=== PATIENT | male | born 1990 | race Caucasian/White ===

== ENCOUNTER 2017-07-26 06:31 | Inpatient (IN) ==
[2017-07-26] MEDS ORDERED: ONDANSETRON 4 MG/2 ML VIAL IV STA (07:20)
[2017-07-26] MEDS ORDERED: LOPERAMIDE 2 MG CAPSULE PO STA (07:20)
[2017-07-26] MEDS ORDERED: SODIUM CHLORIDE 0.9% 1,000 ML IV STA ×2 (07:20→09:46)
--- NOTE | 2017-07-26 07:32 | Emergency Department Note ---
Yayo Garcia Manpreet, am scribing for, and in the presence of, Juanjose Richards MD 07: 23. Susie Garcia James D, MD, personally performed the services described in this documentation, ascribed by Cliff Zee in my presence, and it is both accurate and complete 731 . Arrival - Arrival Chief Complaint: Nausea/Vomiting/Diarrhea Stated Complaint: vomitting/diarrhea/chest pressure/body ache ED Nursing Triage Note: AMB TO ER WITH C/O BODY ACHES, VOMITTING, AND DIARRHEA FOR THE PAST 3 DAYS. HAS HAD CHILLS AND FEELING WEAK. HAS BEEN WEAK AND TIRED FOR THE PAST 3 DAYS. ALSO COMPLAING OF A HEADACHE. LIPS ARE DRY AND CHAPPED. Mode of Arrival: Ambulatory Limitations: No Limitations Source: Patient - History of Present Illness HPI Narrative: Pt is a 26 y/o male, with PMHx of chronic leukemia, who presents to the ED with CC of Abd pain, SOB, FERNANDES, body aches, and V/D for the past 3 days. Pt states he has also been having chills and feeling weak for the past 3 days. Pt states he has had at least 15 BM's in one day but states he has only been urinating twice a day. Pt denies any hematemesis, blood in stool or dysuria. Pt was dx'ed with leukemia in 2010 and takes a Sprycell 100 mg qd. Pt's oncologist is Dr. Horan. No other pains/complaints reported to the ED. Onset (ago): day(s) Consistency: constant Severity: moderate Severity scale (1-10): 2 Allergies/Adverse Reactions: Allergies Allergy/AdvReac Type Severity Reaction Status Date / Time No Known Allergies Allergy Unverified 07/26/17 06:55 Home Medications: Home Medications Medication Instructions Recorded Confirmed Type Dasatinib [Sprycel] 100 mg PO DAILY 07/26/17 07/26/17 History Ibuprofen/Famotidine [Duexis 1 each PO TID 07/26/17 07/26/17 History 800-26.6 mg Tablet] Review of System - Review of System 12 point system: reviewed and no additional remarkable complaints except as stated - Review of System Constitutional: Present: chills, weakness. Absent: diaphoresis, fever Respiratory: Present: respiratory distress. Absent: cough, wheezing Cardiovascular: Absent: chest pain Gastrointestinal: Present: abdominal pain, nausea, vomiting, diarrhea. Absent: hematemesis, hematochezia Genitourinary male: Absent: dysuria Musculoskeletal: Absent: back pain Neurological: Present: headache. Absent: weakness, numbness, paresthesias Medical,Surgical,& Family Hx - Medical History Musculoskeletal: History of: Herniated Disk Hematology: History of: Hematologic Cancer (CHRONIC LEUKEMIA) - Social History Smoking Status: Never smoker Frequency of Alcohol Use: None Type of Drug Use: None Exam Vital Signs: Vital Signs Temperature 99.5 F 07/26/17 06:47 Pulse Rate 80 07/26/17 10:00 Respiratory Rate 17 07/26/17 10:00 Blood Pressure 126/78 07/26/17 10:00 O2 Sat by Pulse Oximetry 100 07/26/17 10:00 GENERAL: This is a well-nourished well-developed white male in no apparent distress. VITAL SIGNS: Reviewed HEENT: Head is atraumatic and normocephalic. Pupils are equal round react to light. Extraocular movements are intact. Oropharynx is benign with slightly dry mucous membranes. NECK: Neck is soft and supple without tenderness. There are no masses. There is no lymphadenopathy. LUNGS: Lungs are clear to auscultation. Chest rises symmetrically. There is no chest wall tenderness. CV: Heart is regular rate and rhythm without murmurs rubs or gallops. ABDOMEN: Abdomen is soft, nontender to palpation. There are no abdominal abnormal masses palpated. There is no organomegaly. Bowel sounds are present and active. SKIN: Skin is warm and dry. No rash. EXTREMITIES: Patient has full range of motion without tenderness. There is no pedal edema. NEUROLOGIC: Awake alert and oriented 4. Cranial nerves II through XII are intact. Motor is 5 over 5 in all extremities bilaterally. Course - Consultations Consultation #1: Discussed with Dr. Saldivar. Patient will be admitted to the oncology service. Time: 12:21 Results - Labs CBC & BMP: 07/26/17 07:17 07/26/17 07:17 Lab Results: I have reviewed the patients labs Labs: Microbiology 07/26/17 10:03 Stool Clostridium difficile Toxin Assay - Final Negative for CDiff A &/or B Ag 07/26/17 10:03 Stool - Final Few WBCs seen - EKG EKG results: interpreted by ERMD - Diagnostic Findings Procedure: Abdominal x-ray: image reviewed by me (Nonspecific gas pattern, no free air, gas in the rectum.), Chest x-ray: image reviewed by me (No infiltrates , no pleural effusions.) Disposition Clinical Impression: CML (chronic myelocytic leukemia), Diarrhea, Nausea and vomiting, Dehydration Case discussed with: patient Disposition: Still a Patient Condition: Stable Time of Disposition: 12:20
--- NOTE | 2017-07-26 07:49 | XRay Report ---
XR chest 1V Indication: Fever, leukemia Comparison: 04 November 2012 Findings: The heart and mediastinum are normal in size and configuration. The pulmonary vascularity is normal in caliber. No lung infiltrates, effusions, pneumothorax or other abnormality is demonstrated. Impression: Normal chest x-ray PROCEDURE INTERPRETED AT [facility] DEPARTMENT OF RADIOLOGY Final Report Signed by: Dr. Jakob Martinez
--- NOTE | 2017-07-26 07:49 | XRay Report ---
XR abdomen 2V Indication: Diarrhea, leukemia Comparison: None available Findings: No free fluid or free air seen. The bowel gas pattern appears within normal limits. No abnormal calcifications are present. No other abnormality is identified. Impression: No evidence of abnormality demonstrated PROCEDURE INTERPRETED AT [facility] DEPARTMENT OF RADIOLOGY Final Report Signed by: Dr. Jakob Martinez
[2017-07-26 07:59] LABS: Eosinophils % 0.3 % (0.00-10.9); Hematocrit 42.3 VOL% (42.0-52.0); Immature Granulocytes % 0.3 %; Immature Granulocytes Absolute 0.01 #; Lymphocytes # 0.6 10*3/uL (1.4-4.0); Lymphocytes % 18.7 % (21.2-54.2); Mean Corpuscular HGB Conc 37.4 GM/DL (32-36); Mean Corpuscular Hemoglobin 32 PG (27-34); Mean Platelet Volume 11.5 FL (9.6-12.0); Monocytes # 0.4 10*3/uL (0.11-0.8); Monocytes % 14.1 % (1.7-12.7); Neutrophils % 66.6 % (38.7-73.9); Platelet Count 125 T/CUMM (130-400); Red Blood Count 4.92 MC/CUMM (3.8-5.5); Red Cell Distribution Width 12.7 % (9.3-17.3); White Blood Count 3.1 T/CUMM (4-12)
[2017-07-26 08:00] LABS: Hemoglobin 15.8 GM/DL (14.0-18.0)
[2017-07-26 08:04] LABS: Albumin 4.3 G/DL (3.4-5.0); Bilirubin,Total 3.7 MG/DL (0.2-1.0); Calcium 8.9 MG/DL (8.5-10.1); Osmolality,Calculated 274.8 MOS/KG (273-304); Total Protein 7.1 G/DL (6.4-8.3)
[2017-07-26] MEDS ORDERED: ONDANSETRON 4 MG/2 ML VIAL ONE ×2 (08:27→12:19)
[2017-07-26] MEDS ORDERED: LOPERAMIDE 2 MG CAPSULE ONE (10:00)
[2017-07-26 12:20] LABS: Apearance,Urine CLEAR (Clear); Bilirubin,Urine Negative (Negative); Blood, Urine Negative (Negative); Glucose,Urine (UA) Negative (Negative); Ketones,Urine 20 mg/dL (Negative); Mucus,Urine Occasional /LPF (Occasional); Nitrite,Urine Negative (Negative); Protein,Urine Negative; Urine Color Yellow (Yellow); Urine Specific Gravity 1.009 (1.001-1.035); Urine Urobilinogen < 2.0 EU/DL (0.2-1.0); WBC,Urine 1 /HPF (0-6)
[2017-07-26 12:34] LABS: Barbiturates Screen,Urine Negative (Negative); Benzodiazepines Screen,Urine Negative (Negative); Cannabinoid Screen,Urine Positive (Negative); Opiate Screen,Urine Negative (Negative); Phencyclidine Screen,Urine Negative (Negative)
[2017-07-26] MEDS ORDERED: LOPERAMIDE 2 MG CAPSULE PO PRN ×2 (14:23)
[2017-07-26] MEDS ORDERED: chlorproMAZINE INJ 50 MG in SODIUM CHLORIDE 0.9% 100 ML IV PRN (14:23)
[2017-07-26] MEDS ORDERED: MAGNESIUM HYDROXIDE SUSP 30 ML UDCUP PO PRN (14:23)
[2017-07-26] MEDS ORDERED: guaiFENesin 200 MG/10 ML UDCUP PO PRN (14:23)
[2017-07-26] MEDS ORDERED: chlorproMAZINE INJ 25 MG in SODIUM CHLORIDE 0.9% 100 ML IV PRN (14:23)
[2017-07-26] MEDS ORDERED: ALPRAZolam 0.25 MG TABLET PO PRN (14:23)
[2017-07-26] MEDS ORDERED: TEMAZEPAM 7.5 MG CAPSULE PO PRN (14:23)
[2017-07-26] MEDS ORDERED: ALUMINUM/MAGNES/SIMETH MAX STR 30 ML UDCUP PO PRN (14:23)
[2017-07-26] MEDS ORDERED: ACETAMINOPHEN 325 MG TABLET PO PRN (14:23)
[2017-07-26] MEDS ORDERED: diphenhydrAMINE CAP 25 MG CAPSULE PO PRN (14:23)
[2017-07-26] MEDS ORDERED: MYLANTA/LIDO VISC 2:1 300 ML BOTTLE SWISH/SPIT PRN (14:23)
[2017-07-26] MEDS ORDERED: BENZTROPINE 2 MG/2 ML AMP IV PRN (14:23)
[2017-07-26] MEDS ORDERED: traMADol 50 MG TABLET PO PRN (14:23)
[2017-07-26] MEDS ORDERED: PROMETHAZINE INJ 25 MG in SODIUM CHLORIDE 0.9% 50 ML IV PRN (14:23)
[2017-07-26] MEDS ORDERED: chlorproMAZINE 25 MG TABLET PO PRN (14:23)
[2017-07-26] MEDS ORDERED: ONDANSETRON 4 MG/2 ML VIAL IV PRN (14:23)
[2017-07-26] MEDS ORDERED: LACTULOSE 20 GM/30 ML UDCUP PO PRN (14:23)
[2017-07-26] MEDS ORDERED: MYLANTA/LIDO VISC 2:1 300 ML BOTTLE SWISH/SWAL PRN (14:23)
[2017-07-26] MEDS: SODIUM CHLORIDE 0.9% 1,000 ML IV SCH (17:54)
[2017-07-26] MEDS: CIPROFLOXACIN 500 MG TABLET PO SCH ×2 (17:55→21:00)
[2017-07-26] MEDS ORDERED: CIPROFLOXACIN 500 MG TABLET PO SCH (21:00)
[2017-07-27] MEDS: SODIUM CHLORIDE 0.9% 1,000 ML IV SCH ×2 (01:56→07:35)
[2017-07-27 06:28] LABS: Basophils % 0.4 % (0.0-0.8); Eosinophils # 0.1 10*3/uL (0.0-0.87); Eosinophils % 2.5 % (0.00-10.9); Hematocrit 35.2 VOL% (42.0-52.0); Hemoglobin 12.5 GM/DL (14.0-18.0); Immature Granulocytes % 0.4 %; Immature Granulocytes Absolute 0.01 #; Lymphocytes # 0.9 10*3/uL (1.4-4.0); Lymphocytes % 37.1 % (21.2-54.2); Mean Corpuscular HGB Conc 35.5 GM/DL (32-36); Mean Corpuscular Hemoglobin 32 PG (27-34); Mean Corpuscular Volume 88.7 FL (87-102); Mean Platelet Volume 11.5 FL (9.6-12.0); Monocytes # 0.4 10*3/uL (0.11-0.8); Neutrophils % 43.6 % (38.7-73.9); Red Blood Count 3.97 MC/CUMM (3.8-5.5); Red Cell Distribution Width 12.7 % (9.3-17.3); White Blood Count 2.4 T/CUMM (4-12)
[2017-07-27 06:32] LABS: Platelet Count 88 T/CUMM (130-400)
[2017-07-27 06:56] LABS: Calcium 8.5 MG/DL (8.5-10.1); Osmolality,Calculated 279.3 MOS/KG (273-304)
[2017-07-27 08:34] LABS: Band Neutrophils 3 % (0-10); Eosinophils 1 % (0-10); Hypochromasia 1+; Lymphocytes 14 % (20-55); Platelet Estimate Decreased; Segmented Neutrophils 72 % (50-85); Total Cells Counted 100
[2017-07-27] MEDS: CIPROFLOXACIN 500 MG TABLET PO SCH ×2 (08:44→20:47)
--- NOTE | 2017-07-27 10:02 | Oncology History&Physical ---
Assessment and Plan - Time spent with patient Time spent with patient: Greater than 30 minutes (1) CML (chronic myelocytic leukemia) Status: Acute Current Visit: Yes (2) Dehydration Status: Acute Current Visit: Yes (3) Diarrhea Status: Acute Assessment and plan: I will place him on twice daily Lomotil. I will adjust his IV fluids. I will go ahead and start him on IV Flagyl and continue with p.o. Cipro. Hopefully his diarrhea will resolve in the next day or 2. We are holding Sprycel for now. I will keep a close watch on a CBC. Current Visit: Yes (4) Nausea and vomiting Status: Acute Current Visit: Yes History of Present Illness History of present illness: Mr. Rodríguez is a 26 year old male with a history of CML that has been on Sprycel now for [address] Han. He presented to the ER yesterday with a 3 day complaint of severe diarrhea and occasional nausea with vomiting. He denies any fever or chills at home but did have 2 episodes of fever here in the hospital. He was admitted for further observation and treatment. His C. difficile toxin was negative. There were white blood cells seen in his stool. He has been off his Sprycel now for 4 days. His CBC shows a mildly suppressed white blood cell count and platelet count. He denies any blood in the stool. He has already had 5 episodes of diarrhea this morning. Home Medications Medication Instructions Recorded Confirmed Type Dasatinib [Sprycel] 100 mg PO DAILY 07/26/17 07/26/17 History Ibuprofen/Famotidine [Duexis 1 each PO TID 07/26/17 07/26/17 History 800-26.6 mg Tablet] Allergies Allergy/AdvReac Type Severity Reaction Status Date / Time No Known Allergies Allergy Unverified 07/26/17 06:55 Medical,Surgical,& Family Hx - Medical History Musculoskeletal: History of: Herniated Disk Hematology: History of: Hematologic Cancer (CHRONIC LEUKEMIA) - Social History Smoking Status: Never smoker Frequency of Alcohol Use: None Type of Drug Use: None 12 point system: reviewed and no additional remarkable complaints except as stated - Constitutional Constitutional: Present: fatigue - Cardiovascular Cardiovascular ROS IM: Absent: chest pain, edema - Respiratory Respiratory: Absent: cough - Gastrointestinal Gastrointestinal: Present: cramping, loose stools, nausea, vomiting. Absent: abdominal pain, hematemesis, jaundice Exam - Constitutional Vitals: Period Temp Pulse Resp BP Sys/Lee Pulse Ox Last 24 Hr 96.4 F-100.4 F 53-80 16-20 101-155/46-81 93-100 General appearance: normal weight, no acute distress - Head Head Exam: Present: normocephalic, atraumatic - Eye Eye Exam: Present: EOMI Pupils: Present: PERRL - ENT ENT exam: Present: normal exam, normal oropharynx - Neck Neck exam: Absent: lymphadenopathy, thyromegaly - Respiratory Respiratory exam: Present: CTAB. Absent: wheezes - Cardiovascular Cardiovascular exam: Present: RRR. Absent: JVD, systolic murmur - GI/Abdominal GI/Abdominal exam: Present: soft. Absent: ascites, distended, firm, mass - Neurological Exam Neurological exam: Present: alert, oriented X3 - Psychiatric Psychiatric exam: Present: normal affect, normal mood - Skin Skin exam: Present: warm, dry Results - Labs CBC & BMP: 07/27/17 04:51 07/27/17 04:51 Lab Results: I have reviewed the past 24 hour labs
[2017-07-27] MEDS: metroNIDAZOLE INJ 500 MG in PREMIX 1 EACH IV SCH ×2 (11:05→18:03)
[2017-07-27] MEDS: DEXT 5% NACL 0.45% KCL 20 MEQ 20 MEQ/1,000 ML BAG IV SCH (11:05)
[2017-07-27] MEDS: DIPHENOXYLATE/ATROPINE 2.5-0.025 MG TABLET PO SCH ×2 (11:05→20:48)
[2017-07-28] MEDS: metroNIDAZOLE INJ 500 MG in PREMIX 1 EACH IV SCH (02:25)
[2017-07-28] MEDS: DEXT 5% NACL 0.45% KCL 20 MEQ 20 MEQ/1,000 ML BAG IV SCH (02:26)
[2017-07-28 05:41] LABS: Basophils % 0.3 % (0.0-0.8); Eosinophils % 1.2 % (0.00-10.9); Hemoglobin 13.1 GM/DL (14.0-18.0); Immature Granulocytes % 0.6 %; Immature Granulocytes Absolute 0.02 #; Lymphocytes # 1.9 10*3/uL (1.4-4.0); Lymphocytes % 58.5 % (21.2-54.2); Mean Corpuscular HGB Conc 35.4 GM/DL (32-36); Mean Corpuscular Hemoglobin 31 PG (27-34); Mean Corpuscular Volume 87.7 FL (87-102); Mean Platelet Volume 11.7 FL (9.6-12.0); Monocytes # 0.3 10*3/uL (0.11-0.8); Monocytes % 9.8 % (1.7-12.7); Neutrophils % 29.6 % (38.7-73.9); Platelet Count 77 T/CUMM (130-400); Red Blood Count 4.22 MC/CUMM (3.8-5.5); Red Cell Distribution Width 12.9 % (9.3-17.3); White Blood Count 3.3 T/CUMM (4-12)
[2017-07-28 06:18] LABS: Albumin 3.5 G/DL (3.4-5.0); Bilirubin,Total 1.6 MG/DL (0.2-1.0); Calcium 8.8 MG/DL (8.5-10.1); Magnesium 2.3 MG/DL (1.8-2.4); Osmolality,Calculated 279.3 MOS/KG (273-304); Potassium 4.4 MMOL/L (3.5-5.1); Total Protein 5.9 G/DL (6.4-8.3)
[2017-07-28 07:35] LABS: Atypical Lymphocytes Moderate; Eosinophils 1 % (0-10); Hypochromasia 1+; Lymphocytes 55 % (20-55); Microcytosis 1+; Platelet Estimate Decreased; Segmented Neutrophils 34 % (50-85); Total Cells Counted 100
--- NOTE | 2017-07-28 08:30 | Discharge Summary ---
Hospital Course - Hospital Course Hospital Course: Mr. Rodríguez feels much better today. His diarrhea significantly improved. He did have 3 bowel movements since lunch yesterday but both of these are more formed. I started him on Flagyl yesterday. He is also taken Lomotil 2 doses. He request to go home today and continue his therapy at home. I am fine with this since his diarrhea has significantly improved. He still remains mildly thrombocytopenic so I would like him to have labs rechecked this week with Dr. Han. He states he was supposed to have this done last week anyway so he will call and get it rechecked in the next day or 2. He will resume his Sprycel tonight. I will give him 3 more days of Flagyl and provide him with Lomotil to be taken as needed. His follow-up should remain as is with Dr. Han for his next office visit. Diagnosis - Discharge Diagnosis (1) CML (chronic myelocytic leukemia) Status: Acute (2) Dehydration Status: Acute (3) Diarrhea Status: Acute (4) Nausea and vomiting Status: Acute Discharge Plan - Discharge Data Disposition: Disch To Home/Self Care Condition at Discharge: Stable Discharge Diet: advance to your usual diet Activity: resume usual activities as tolerated Hygiene: no restrictions Weight Bearing at Discharge: full weight bearing Driving: no restrictions - Discharge Medications New Diphenoxylate/Atrop 2.5-0.025 [Lomotil Tab] 1 tablet PO Q6H PRN #15 tablet PRN Reason: Diarrhea metroNIDAZOLE TAB [Flagyl Cap/Tab] 500 mg PO BID #6 tablet Continue Ibuprofen/Famotidine [Duexis 800-26.6 mg Tablet] 1 each PO TID Dasatinib [Sprycel] 100 mg PO DAILY - Follow Up or Referral - Forms/Instructions Exam - Constitutional Vitals: Period Temp Pulse Resp BP Sys/Lee Pulse Ox Last 24 Hr 97.4 F-99.6 F 58-110 18-20 110-155/55-82 96-99 Discharge Results Procedures and tests throughout hospitalization: Pending Orders 07/26/17 07:53 Blood Culture Stat 07/26/17 10:03 Stool Culture Stat 07/26/17 11:38 Urine Culture Stat Labs on day of discharge: Labs from last 24 hours 07/28/17 07/28/17 07/28/17 04:23 04:23 04:23 WBC 3.3 L D RBC 4.22 Hgb 13.1 L Hct 37.0 L MCV 87.7 MCH 31 MCHC 35.4 RDW 12.9 Plt Count 77 L MPV 11.7 Neut % (Auto) 29.6 L Lymph % (Auto) 58.5 H [place] % (Auto) 9.8 Eos % (Auto) 1.2 Baso % (Auto) 0.3 Neut # (Auto) 1.0 L Lymph # (Auto) 1.9 [place] # (Auto) 0.3 Eos # (Auto) 0.0 Baso # (Auto) 0.0 Total Counted 100 Immature Gran % 0.6 Nucleated RBC % 0.0 Immature Gran # 0.02 Segmented Neutrophils 34 L Band Neutrophils Lymphocytes 55 Monocytes 10 Eosinophils 1 Nucleated RBCs # 0.00 Atypical Lymphocytes Moderate Platelet Estimate Decreased Immature Plt Fraction 0.0 Hypochromasia 1+ Microcytosis 1+ Morphology Comment Fibrinogen 241 Sodium 141 Potassium 4.4 Chloride 106 Carbon Dioxide 32 Anion Gap 7.4 BUN 10 Creatinine 1.20 GFR Calculation 97 BUN/Creatinine Ratio 8.00 Glucose 97 Calculated Osmolality 279.3 Calcium 8.8 Magnesium 2.3 Total Bilirubin 1.60 H AST 11 ALT 14 L Alkaline Phosphatase 34 L Total Protein 5.9 L Albumin 3.5 Globulin 2.4 Albumin/Globulin Ratio 1.4 07/27/17 04:51 WBC RBC Hgb Hct MCV MCH MCHC RDW Plt Count MPV Neut % (Auto) Lymph % (Auto) [place] % (Auto) Eos % (Auto) Baso % (Auto) Neut # (Auto) Lymph # (Auto) [place] # (Auto) Eos # (Auto) Baso # (Auto) Total Counted 100 Immature Gran % Nucleated RBC % Immature Gran # Segmented Neutrophils 72 Band Neutrophils 3 Lymphocytes 14 L Monocytes 10 Eosinophils 1 Nucleated RBCs # Atypical Lymphocytes Platelet Estimate Decreased Immature Plt Fraction Hypochromasia 1+ Microcytosis Morphology Comment Fibrinogen Sodium Potassium Chloride Carbon Dioxide Anion Gap BUN Creatinine GFR Calculation BUN/Creatinine Ratio Glucose Calculated Osmolality Calcium Magnesium Total Bilirubin AST ALT Alkaline Phosphatase Total Protein Albumin Globulin Albumin/Globulin Ratio Preliminary micro results at discharge 07/26/17 11:38 Urine Culture - Preliminary Urine,Voided No Growth at 24 hours. 07/26/17 10:03 Stool Culture - Preliminary Stool No enteric pathogens at 24 hrs 07/26/17 07:53 Blood Culture - Preliminary Blood No growth at 1 day 07/26/17 07:53 Blood Culture - Preliminary Blood No growth at 1 day DS: Provider Date of admission: 07/26/17 12:21 Primary care physician: . Namita PCP Attending physician on admission: Mikey Campoverde MD Discharging clinician: Mikey Campoverde MD
[2017-07-28 11:33] VITALS: BP 123/55
== END 2017-07-28 09:20 | disposition home or self-care (01) | DRG 641 ==
LOC: N.ED 06:31 → N.EDINP 12:21 → N.4E 12:36
PROVIDERS: ADMIT Specialist; ATTEND Specialist

== ENCOUNTER 2021-03-09 14:25 | Inpatient (IN) ==
[2021-03-09] MEDS ORDERED: VANCOMYCIN INJ 1,500 MG in SODIUM CHLORIDE 0.9% 250 ML IV STA (15:17)
[2021-03-09 16:17] LABS: Basophils % 0.1 % (0.0-0.8); Hematocrit 37.8 VOL% (42.0-52.0); Hemoglobin 12.4 GM/DL (14.0-18.0); Immature Granulocytes % 0.4 %; Immature Granulocytes Absolute 0.04 #; Lymphocytes # 1.5 10*3/uL (1.4-4.0); Mean Corpuscular HGB Conc 32.8 GM/DL (32-36); Mean Corpuscular Volume 87.9 FL (87-102); Mean Platelet Volume 9.8 FL (9.6-12.0); Monocytes % 4.8 % (1.7-12.7); Neutrophils % 80.7 % (38.7-73.9); Platelet Count 274 T/CUMM (130-400); Red Cell Distribution Width 13.1 % (9.3-17.3); White Blood Count 10.6 T/CUMM (4-12)
[2021-03-09] MEDS ORDERED: VANCOMYCIN INJ 1,500 MG in SODIUM CHLORIDE 0.9% 500 ML IV STA (16:35)
[2021-03-09 16:43] LABS: Calcium 9.1 MG/DL (8.5-10.1); Potassium 4.2 MMOL/L (3.5-5.1)
[2021-03-09] MEDS ORDERED: ONDANSETRON 4 MG/2 ML VIAL IV PRN (17:27)
[2021-03-09] MEDS ORDERED: GLUCAGON 1 MG VIAL IM PRN (17:27)
[2021-03-09] MEDS ORDERED: DEXTROSE 50% 25 GM/50 ML VIAL IV PRN (17:27)
[2021-03-09] MEDS: MIRTAZAPINE 15 MG TABLET PO SCH (21:44)
[2021-03-09] MEDS: PIPERACILLIN/TAZOBACTAM 3,375 MG in SODIUM CHLORIDE 0.9% 100 ML IV SCH (21:44)
[2021-03-09] MEDS: GABAPENTIN 300 MG CAPSULE PO SCH (21:44)
[2021-03-09 21:47] LABS: Barbiturates Screen,Urine Negative (Negative); Benzodiazepines Screen,Urine Positive (Negative); Cannabinoid Screen,Urine Positive (Negative); Opiate Screen,Urine Negative (Negative); Phencyclidine Screen,Urine Negative (Negative)
[2021-03-09] MEDS: ACETAMINOPHEN 325 MG TABLET PO PRN (22:54)
[2021-03-10] MEDS: VANCOMYCIN INJ 1,500 MG in SODIUM CHLORIDE 0.9% 500 ML IV SCH ×2 (04:05→20:47)
[2021-03-10 05:40] LABS: Basophils % 0.2 % (0.0-0.8); Eosinophils # 0.1 10*3/uL (0.0-0.87); Eosinophils % 1.1 % (0.00-10.9); Hematocrit 35.1 VOL% (42.0-52.0); Hemoglobin 11.2 GM/DL (14.0-18.0); Immature Granulocytes % 0.5 %; Immature Granulocytes Absolute 0.03 #; Lymphocytes # 1.8 10*3/uL (1.4-4.0); Lymphocytes % 27.2 % (21.2-54.2); Mean Corpuscular HGB Conc 31.9 GM/DL (32-36); Mean Corpuscular Volume 90.2 FL (87-102); Mean Platelet Volume 10.2 FL (9.6-12.0); Monocytes % 7.3 % (1.7-12.7); Neutrophils % 63.7 % (38.7-73.9); Platelet Count 249 T/CUMM (130-400); Red Blood Count 3.89 MC/CUMM (3.8-5.5); Red Cell Distribution Width 13.2 % (9.3-17.3); White Blood Count 6.5 T/CUMM (4-12)
[2021-03-10 05:54] LABS: Calcium 8.5 MG/DL (8.5-10.1); Osmolality,Calculated 277.5 MOS/KG (273-304); Potassium 3.8 MMOL/L (3.5-5.1)
[2021-03-10] MEDS: ACETAMINOPHEN 325 MG TABLET PO PRN (06:03)
[2021-03-10] MEDS: PIPERACILLIN/TAZOBACTAM 3,375 MG in SODIUM CHLORIDE 0.9% 100 ML IV SCH ×2 (06:05→15:39)
[2021-03-10] MEDS: GABAPENTIN 300 MG CAPSULE PO SCH ×3 (09:00→20:46)
[2021-03-10] MEDS ORDERED: LACTATED RINGERS 1,000 ML IV SCH (09:30)
[2021-03-10] MEDS ORDERED: fentaNYL 100 MCG/2 ML VIAL ONE (09:38)
[2021-03-10] MEDS ORDERED: KETAMINE 500 MG/10 ML VIAL ONE (09:38)
[2021-03-10] MEDS ORDERED: MIDAZOLAM 2 MG/2 ML VIAL ONE ×2 (09:38→09:58)
[2021-03-10] MEDS ORDERED: SODIUM CHLORIDE 0.9% 250 ML IV ONE (09:40)
[2021-03-10] MEDS ORDERED: LIDOCAINE 2% 5 ML VIAL ONE (09:40)
[2021-03-10] MEDS ORDERED: propofoL 200 MG/20 ML VIAL IV ONE ×2 (09:40→10:15)
[2021-03-10] MEDS ORDERED: LIDOCAINE 1% 20 ML VIAL ONE (09:47)
[2021-03-10] MEDS ORDERED: ONDANSETRON 4 MG/2 ML VIAL IV PRN (10:38)
[2021-03-10] MEDS: HYDROmorphone 2 MG/1 ML VIAL IV PRN ×4 (10:46→11:06)
[2021-03-10] MEDS ORDERED: MEPERIDINE 25 MG/1 ML VIAL IV PRN (11:07)
[2021-03-10] MEDS ORDERED: ROPIVACAINE 0.5% 30 ML VIAL ONE (11:35)
[2021-03-10] MEDS: METHOCARBAMOL 750 MG TABLET PO SCH ×2 (15:40→20:47)
[2021-03-10] MEDS: PANTOPRAZOLE 40 MG TABLET PO SCH (15:40)
[2021-03-10] MEDS: MIRTAZAPINE 15 MG TABLET PO SCH (20:46)
[2021-03-10] MEDS ORDERED: NON-FORMULARY MEDICATION (Buprenorphine-Naloxone 8-2 mg film) SL SCH (21:00)
[2021-03-11] MEDS: PIPERACILLIN/TAZOBACTAM 3,375 MG in SODIUM CHLORIDE 0.9% 100 ML IV SCH ×2 (00:58→15:37)
[2021-03-11 06:07] LABS: Basophils % 0.4 % (0.0-0.8); Eosinophils # 0.1 10*3/uL (0.0-0.87); Eosinophils % 1.8 % (0.00-10.9); Hematocrit 34.8 VOL% (42.0-52.0); Hemoglobin 11.5 GM/DL (14.0-18.0); Immature Granulocytes % 0.2 %; Immature Granulocytes Absolute 0.01 #; Lymphocytes # 1.8 10*3/uL (1.4-4.0); Lymphocytes % 35.2 % (21.2-54.2); Mean Corpuscular Volume 88.1 FL (87-102); Mean Platelet Volume 9.7 FL (9.6-12.0); Monocytes % 7.3 % (1.7-12.7); Neutrophils % 55.1 % (38.7-73.9); Platelet Count 255 T/CUMM (130-400); Red Blood Count 3.95 MC/CUMM (3.8-5.5); White Blood Count 5.1 T/CUMM (4-12)
[2021-03-11 06:24] LABS: Calcium 8.8 MG/DL (8.5-10.1); Osmolality,Calculated 272.8 MOS/KG (273-304); Potassium 3.8 MMOL/L (3.5-5.1)
[2021-03-11 06:29] LABS: Eosinophils 1 % (0-10); Lymphocytes 28 % (20-55); Platelet Estimate Normal; Segmented Neutrophils 67 % (50-85); Total Cells Counted 100
[2021-03-11] MEDS: GABAPENTIN 300 MG CAPSULE PO SCH ×3 (08:58→20:27)
[2021-03-11] MEDS: PANTOPRAZOLE 40 MG TABLET PO SCH (08:58)
[2021-03-11] MEDS: METHOCARBAMOL 750 MG TABLET PO SCH ×3 (08:58→20:27)
[2021-03-11] MEDS: VANCOMYCIN INJ 1,500 MG in SODIUM CHLORIDE 0.9% 500 ML IV SCH ×2 (08:59→20:27)
[2021-03-11] MEDS: traMADol 50 MG TABLET PO PRN ×2 (09:17→20:32)
[2021-03-11] MEDS ORDERED: MORPHINE 4 MG/1 ML VIAL IV ONE (10:35)
[2021-03-11] MEDS ORDERED: MORPHINE 4 MG/1 ML VIAL IV PRN (11:33)
[2021-03-11] MEDS: MIRTAZAPINE 15 MG TABLET PO SCH (20:27)
[2021-03-12] MEDS: PIPERACILLIN/TAZOBACTAM 3,375 MG in SODIUM CHLORIDE 0.9% 100 ML IV SCH ×2 (00:25→10:41)
[2021-03-12 05:36] LABS: Basophils % 0.7 % (0.0-0.8); Eosinophils # 0.1 10*3/uL (0.0-0.87); Eosinophils % 3.2 % (0.00-10.9); Hematocrit 35.3 VOL% (42.0-52.0); Hemoglobin 11.6 GM/DL (14.0-18.0); Immature Granulocytes % 0.5 %; Immature Granulocytes Absolute 0.02 #; Lymphocytes # 1.6 10*3/uL (1.4-4.0); Lymphocytes % 39.6 % (21.2-54.2); Mean Corpuscular HGB Conc 32.9 GM/DL (32-36); Mean Corpuscular Volume 88.3 FL (87-102); Mean Platelet Volume 9.9 FL (9.6-12.0); Monocytes % 8.3 % (1.7-12.7); Neutrophils % 47.7 % (38.7-73.9); Platelet Count 261 T/CUMM (130-400); Red Cell Distribution Width 12.7 % (9.3-17.3); White Blood Count 4.1 T/CUMM (4-12)
[2021-03-12 05:57] LABS: Calcium 8.7 MG/DL (8.5-10.1); Osmolality,Calculated 277.4 MOS/KG (273-304); Potassium 3.8 MMOL/L (3.5-5.1)
[2021-03-12 06:07] LABS: Hypochromasia Slight; Microcytosis Slight; Platelet Estimate Adequate
[2021-03-12] MEDS: traMADol 50 MG TABLET PO PRN ×2 (06:15→17:56)
[2021-03-12] MEDS: GABAPENTIN 300 MG CAPSULE PO SCH ×3 (08:27→20:44)
[2021-03-12] MEDS: VANCOMYCIN INJ 1,500 MG in SODIUM CHLORIDE 0.9% 500 ML IV SCH ×2 (08:28→20:43)
[2021-03-12] MEDS: METHOCARBAMOL 750 MG TABLET PO SCH ×3 (08:28→20:44)
[2021-03-12] MEDS: PANTOPRAZOLE 40 MG TABLET PO SCH (08:33)
[2021-03-12] MEDS: MIRTAZAPINE 15 MG TABLET PO SCH (20:44)
[2021-03-13 06:45] LABS: Basophils % 0.7 % (0.0-0.8); Eosinophils # 0.1 10*3/uL (0.0-0.87); Eosinophils % 3.1 % (0.00-10.9); Hematocrit 34.3 VOL% (42.0-52.0); Hemoglobin 11.9 GM/DL (14.0-18.0); Immature Granulocytes % 0.5 %; Immature Granulocytes Absolute 0.02 #; Lymphocytes # 1.5 10*3/uL (1.4-4.0); Lymphocytes % 36.9 % (21.2-54.2); Mean Corpuscular HGB Conc 34.7 GM/DL (32-36); Mean Corpuscular Volume 84.3 FL (87-102); Mean Platelet Volume 9.8 FL (9.6-12.0); Monocytes % 7.4 % (1.7-12.7); Neutrophils % 51.4 % (38.7-73.9); Platelet Count 242 T/CUMM (130-400); Red Blood Count 4.07 MC/CUMM (3.8-5.5); Red Cell Distribution Width 12.8 % (9.3-17.3); White Blood Count 4.2 T/CUMM (4-12)
[2021-03-13 07:04] LABS: Osmolality,Calculated 281.3 MOS/KG (273-304); Potassium 3.6 MMOL/L (3.5-5.1)
[2021-03-13] MEDS: GABAPENTIN 300 MG CAPSULE PO SCH (08:43)
[2021-03-13] MEDS: PANTOPRAZOLE 40 MG TABLET PO SCH (08:44)
[2021-03-13] MEDS: METHOCARBAMOL 750 MG TABLET PO SCH (08:44)
[2021-03-13] MEDS ORDERED: CIPROFLOXACIN 500 MG TABLET PO SCH (09:00)
[2021-03-13 11:30] VITALS: BP 132/88
== END 2021-03-13 14:06 | disposition home or self-care (01) | DRG 580 ==
LOC: N.ED 14:25 → SUATTDRO 17:30 → N.EDINP 17:30 → N.3E 20:20
PROVIDERS: ADMIT Internal Medicine Geriatric Medicine; ATTEND Internal Medicine

== ENCOUNTER 2021-05-05 18:36 | Inpatient (IN) ==
[2021-05-05] MEDS ORDERED: DIPHTHERIA/TETANUS ADULT VACCINE 0.5 ML SYRINGE IM ONE (18:44)
[2021-05-05] MEDS ORDERED: ONDANSETRON 4 MG/2 ML VIAL IV STA (18:44)
[2021-05-05] MEDS ORDERED: LACTATED RINGERS 2,000 ML IV STA (18:44)
[2021-05-05 19:12] LABS: Alanine Aminotransferase 39 U/L (16-61); Albumin 4.2 G/DL (3.4-5.0); Alkaline Phosphatase 72 U/L (45-117); Amylase 25 U/L (25-115); Aspartate Amino Transferase 22 U/L (0-37); Blood Urea Nitrogen 22 MG/DL (7-18); Calcium 8.9 MG/DL (8.5-10.1); Carbon Dioxide 28 MMOL/L (21-32); Estimated Glom Filtration Rate 84 ML/MIN; Glucose 79 MG/DL (74-106); Osmolality,Calculated 271.1 MOS/KG (273-304); Potassium 3.9 MMOL/L (3.5-5.1); Sodium 135 MMOL/L (136-145); Total Protein 7.7 G/DL (6.4-8.2)
[2021-05-05 19:34] LABS: Basophils % 0.3 % (0.0-0.8); Eosinophils # 0.1 10*3/uL (0.0-0.87); Eosinophils % 0.6 % (0.00-10.9); Hemoglobin 13.3 GM/DL (14.0-18.0); Immature Granulocytes % 0.5 %; Immature Granulocytes Absolute 0.04 #; Lymphocytes # 1.4 10*3/uL (1.4-4.0); Lymphocytes % 17.6 % (21.2-54.2); Mean Corpuscular HGB Conc 33.3 GM/DL (32-36); Monocytes % 9.1 % (1.7-12.7); Neutrophils % 71.9 % (38.7-73.9); Platelet Count 289 T/CUMM (130-400); Red Blood Count 4.65 MC/CUMM (3.8-5.5); Red Cell Distribution Width 14.1 % (9.3-17.3); White Blood Count 7.8 T/CUMM (4-12)
[2021-05-05 19:44] LABS: Bilirubin,Urine Negative (Negative); Blood, Urine Negative (Negative); Glucose,Urine (UA) Negative (Negative); Hyaline Casts,Urine 69 /LPF (0-3); Ketones,Urine Negative (Negative); Mucus,Urine Many /LPF (Occasional); Nitrite,Urine Negative (Negative); Protein,Urine 30 MG/DL; RBC,Urine 3 /HPF (0-4); Squamous Epithelial Cell,Urine Occasional /HPF (0-10); Urine Appearance CLEAR (Clear); Urine Color Amber (Yellow); Urine Specific Gravity 1.043 (1.001-1.035); Urine Urobilinogen < 2.0 EU/DL (0.2-1.0)
[2021-05-05 19:45] LABS: PT Patient Result 11.2 SECS (10.5-12.0); Partial Thromboplastin Time 22.6 SECS (23.9-33.8)
[2021-05-05 19:48] LABS: Barbiturates Screen,Urine Negative (Negative); Benzodiazepines Screen,Urine Negative (Negative); Cannabinoid Screen,Urine Positive (Negative); Opiate Screen,Urine Negative (Negative); Phencyclidine Screen,Urine Negative (Negative)
[2021-05-05 19:50] LABS: ABG Base Excess 2.5 MMOL/L (-2.5-2.5); ABG HCO3 26.6 MMOL/L (20-26); ABG Oxygen Saturation 95.7 % (95-100); ABG PCO2 40.5 MM HG (35-48); ABG PH 7.431 (7.35-7.45); ABG PO2 76.5 MM HG (80-95); ABG TCO2 23.7 MMOL/L (23-27)
[2021-05-05] MEDS ORDERED: ONDANSETRON 4 MG/2 ML VIAL IV PRN (20:34)
[2021-05-05] MEDS: LACTATED RINGERS 1,000 ML IV SCH (21:02)
[2021-05-05] MEDS: DOCUSATE SODIUM 100 MG CAPSULE PO SCH (23:32)
[2021-05-06] MEDS: LACTATED RINGERS 1,000 ML IV SCH ×3 (05:18→22:38)
[2021-05-06] MEDS ORDERED: HALOPERIDOL 5 MG/ML AMP IM ONE (05:38)
[2021-05-06] MEDS ORDERED: LORazepam 2 MG/1 ML VIAL IV ONE (06:12)
[2021-05-06] MEDS ORDERED: LORazepam 2 MG/1 ML VIAL ONE (06:15)
[2021-05-06] MEDS ORDERED: ETOMIDATE 20 MG/10 ML VIAL IV ONE ×3 (06:29→06:35)
[2021-05-06] MEDS ORDERED: VECURONIUM 10 MG VIAL IV ONE ×2 (06:29→06:36)
[2021-05-06] MEDS ORDERED: ZIPRASIDONE 20 MG/1 ML VIAL IM ONE ×2 (06:35→07:00)
[2021-05-06] MEDS: MIDAZOLAM 100 MG in SODIUM CHLORIDE 0.9% 80 ML IV PRN ×2 (07:10→22:01)
[2021-05-06 07:13] LABS: Basophils % 0.2 % (0.0-0.8); Eosinophils % 0.1 % (0.00-10.9); Hematocrit 39.3 VOL% (42.0-52.0); Hemoglobin 12.6 GM/DL (14.0-18.0); Immature Granulocytes % 0.5 %; Immature Granulocytes Absolute 0.06 #; Lymphocytes # 3.1 10*3/uL (1.4-4.0); Lymphocytes % 23.6 % (21.2-54.2); Mean Corpuscular HGB Conc 32.1 GM/DL (32-36); Mean Corpuscular Volume 89.5 FL (87-102); Mean Platelet Volume 10.1 FL (9.6-12.0); Monocytes % 8.7 % (1.7-12.7); Neutrophils % 66.9 % (38.7-73.9); Platelet Count 356 T/CUMM (130-400); Red Blood Count 4.39 MC/CUMM (3.8-5.5)
[2021-05-06 07:17] LABS: Bilirubin,Urine Negative (Negative); Blood, Urine Moderate mg/dL (Negative); Glucose,Urine (UA) Negative (Negative); Hyaline Casts,Urine 1 /LPF (0-3); Ketones,Urine Negative (Negative); Mucus,Urine Few /LPF (Occasional); Nitrite,Urine Negative (Negative); Protein,Urine 100 MG/DL; RBC,Urine 43 /HPF (0-4); Urine Appearance CLEAR (Clear); Urine Color Yellow (Yellow); Urine Specific Gravity 1.032 (1.001-1.035); Urine Urobilinogen < 2.0 EU/DL (0.2-1.0)
[2021-05-06 07:25] LABS: PT Patient Result 11.1 SECS (10.5-12.0); Partial Thromboplastin Time 25.4 SECS (23.9-33.8)
[2021-05-06 07:31] LABS: Albumin 3.8 G/DL (3.4-5.0); Bilirubin,Total 0.8 MG/DL (0.2-1.0); Osmolality,Calculated 282.5 MOS/KG (273-304); Potassium 3.6 MMOL/L (3.5-5.1); Total Protein 7.7 G/DL (6.4-8.2)
[2021-05-06 07:32] LABS: Blood Urea Nitrogen 16 MG/DL (7-18); Calcium 8.8 MG/DL (8.5-10.1); Carbon Dioxide 21 MMOL/L (21-32); Estimated Glom Filtration Rate 79 ML/MIN; Glucose 189 MG/DL (74-106); Osmolality,Calculated 284.4 MOS/KG (273-304); Potassium 3.8 MMOL/L (3.5-5.1); Sodium 140 MMOL/L (136-145)
[2021-05-06 07:45] LABS: ABG Base Excess -0.7 MMOL/L (-2.5-2.5); ABG HCO3 23.8 MMOL/L (20-26); ABG PCO2 46.4 MM HG (35-48); ABG PH 7.345 (7.35-7.45); ABG TCO2 22.6 MMOL/L (23-27); Allen Test Positive; Pt O2 Delivery Device Ventilator
[2021-05-06] MEDS ORDERED: PANTOPRAZOLE 40 MG TABLET PO SCH (09:00)
[2021-05-06] MEDS: DOCUSATE SODIUM 100 MG CAPSULE PO SCH ×2 (09:22→20:55)
[2021-05-06] MEDS: cefTRIAXone 1,000 MG in SODIUM CHLORIDE 0.9% 100 ML IV SCH (09:23)
[2021-05-06] MEDS: PANTOPRAZOLE 40 MG VIAL IV SCH (09:23)
[2021-05-06] MEDS: ENOXAPARIN 40 MG/0.4 ML SYRINGE SUBCUT SCH (14:23)
[2021-05-07] MEDS: LACTATED RINGERS 1,000 ML IV SCH ×5 (00:24→16:55)
[2021-05-07 02:45] LABS: ABG Base Excess 2.8 MMOL/L (-2.5-2.5); ABG HCO3 26.8 MMOL/L (20-26); ABG Oxygen Saturation 94.9 % (95-100); ABG PCO2 38.9 MM HG (35-48); ABG PH 7.456 (7.35-7.45); ABG PO2 72.6 MM HG (80-95)
[2021-05-07 04:49] LABS: Basophils % 0.2 % (0.0-0.8); Eosinophils % 0.6 % (0.00-10.9); Hematocrit 31.9 VOL% (42.0-52.0); Hemoglobin 10.8 GM/DL (14.0-18.0); Immature Granulocytes % 0.2 %; Immature Granulocytes Absolute 0.01 #; Lymphocytes # 1.1 10*3/uL (1.4-4.0); Lymphocytes % 20.7 % (21.2-54.2); Mean Corpuscular HGB Conc 33.9 GM/DL (32-36); Mean Corpuscular Volume 86.2 FL (87-102); Monocytes % 10.5 % (1.7-12.7); Neutrophils % 67.8 % (38.7-73.9); Platelet Count 228 T/CUMM (130-400); Red Cell Distribution Width 14.1 % (9.3-17.3); White Blood Count 5.2 T/CUMM (4-12)
[2021-05-07 05:05] LABS: Bilirubin,Total 0.5 MG/DL (0.2-1.0); Calcium 8.5 MG/DL (8.5-10.1); Osmolality,Calculated 284.1 MOS/KG (273-304); Potassium 3.5 MMOL/L (3.5-5.1); Total Protein 6.3 G/DL (6.4-8.2)
[2021-05-07] MEDS: MIDAZOLAM 100 MG in SODIUM CHLORIDE 0.9% 80 ML IV PRN ×2 (08:27→21:18)
[2021-05-07] MEDS: DOCUSATE SODIUM 100 MG/10 ML UDCUP PO SCH ×2 (08:33→21:29)
[2021-05-07] MEDS: cefTRIAXone 1,000 MG in SODIUM CHLORIDE 0.9% 100 ML IV SCH (08:37)
[2021-05-07] MEDS: PANTOPRAZOLE 40 MG VIAL IV SCH (09:09)
[2021-05-07] MEDS ORDERED: VANCOMYCIN INJ 1,000 MG in SODIUM CHLORIDE 0.9% 250 ML IV SCH (10:30)
[2021-05-07] MEDS: VANCOMYCIN INJ 1,500 MG in SODIUM CHLORIDE 0.9% 500 ML IV SCH ×2 (11:01→23:58)
[2021-05-07] MEDS: ENOXAPARIN 40 MG/0.4 ML SYRINGE SUBCUT SCH (11:56)
[2021-05-07] MEDS: KETOROLAC 30 MG/1 ML VIAL IV PRN (22:18)
[2021-05-08] MEDS: LACTATED RINGERS 1,000 ML IV SCH ×3 (01:29→17:05)
[2021-05-08 04:38] LABS: Basophils % 0.2 % (0.0-0.8); Eosinophils % 0.5 % (0.00-10.9); Hematocrit 31.1 VOL% (42.0-52.0); Hemoglobin 10.3 GM/DL (14.0-18.0); Immature Granulocytes % 0.2 %; Immature Granulocytes Absolute 0.01 #; Lymphocytes # 1.2 10*3/uL (1.4-4.0); Lymphocytes % 21.3 % (21.2-54.2); Mean Corpuscular HGB Conc 33.1 GM/DL (32-36); Mean Corpuscular Volume 87.4 FL (87-102); Monocytes % 8.7 % (1.7-12.7); Neutrophils % 69.1 % (38.7-73.9); Platelet Count 218 T/CUMM (130-400); Red Blood Count 3.56 MC/CUMM (3.8-5.5); White Blood Count 5.6 T/CUMM (4-12)
[2021-05-08 04:59] LABS: Calcium 8.8 MG/DL (8.5-10.1); Osmolality,Calculated 290.4 MOS/KG (273-304); Potassium 3.7 MMOL/L (3.5-5.1)
[2021-05-08] MEDS: MIDAZOLAM 100 MG in SODIUM CHLORIDE 0.9% 80 ML IV PRN ×2 (07:44→18:11)
[2021-05-08] MEDS: PANTOPRAZOLE 40 MG VIAL IV SCH (08:47)
[2021-05-08] MEDS: DOCUSATE SODIUM 100 MG/10 ML UDCUP PO SCH ×2 (08:47→20:24)
[2021-05-08] MEDS: cefTRIAXone 1,000 MG in SODIUM CHLORIDE 0.9% 100 ML IV SCH (08:47)
[2021-05-08] MEDS: hydrALAZINE 20 MG/1 ML VIAL IV PRN ×2 (09:58→23:11)
[2021-05-08] MEDS: KETOROLAC 30 MG/1 ML VIAL IV PRN ×2 (10:32→21:37)
[2021-05-08] MEDS: VANCOMYCIN INJ 1,500 MG in SODIUM CHLORIDE 0.9% 500 ML IV SCH ×2 (11:30→22:00)
[2021-05-08] MEDS: ENOXAPARIN 40 MG/0.4 ML SYRINGE SUBCUT SCH (11:31)
[2021-05-08] MEDS ORDERED: MORPHINE 4 MG/1 ML VIAL ONE (11:52)
[2021-05-08] MEDS: cloNIDine 0.1 MG TABLET PER TUBE SCH ×2 (12:00→20:24)
[2021-05-08] MEDS ORDERED: MORPHINE 4 MG/1 ML VIAL IV ONE (12:00)
[2021-05-08] MEDS: fentaNYL 50 MCG/HR PATCH TRANSDERM SCH (12:04)
[2021-05-08] MEDS ORDERED: diphenhydrAMINE 50 MG/1 ML VIAL IV PRN (12:44)
[2021-05-08] MEDS: METHOCARBAMOL 750 MG TABLET PO PRN (13:05)
[2021-05-08] MEDS: rOPINIRole 0.25 MG TABLET PO PRN ×2 (13:36→23:12)
[2021-05-08] MEDS: cloNIDine 0.1 MG TABLET PER TUBE PRN ×2 (13:36→21:37)
[2021-05-08] MEDS: ACETAMINOPHEN 325 MG TABLET PO PRN (13:37)
[2021-05-08] MEDS: MIRTAZAPINE 15 MG TABLET PO SCH (20:25)
[2021-05-08] MEDS: GABAPENTIN 300 MG CAPSULE PO SCH (21:37)
[2021-05-09] MEDS: LACTATED RINGERS 1,000 ML IV SCH ×2 (01:12→09:17)
[2021-05-09] MEDS: cloNIDine 0.1 MG TABLET PER TUBE SCH ×4 (03:54→21:05)
[2021-05-09] MEDS: MIDAZOLAM 100 MG in SODIUM CHLORIDE 0.9% 80 ML IV PRN ×2 (04:02→14:40)
[2021-05-09 04:20] LABS: Alanine Aminotransferase 29 U/L (16-61); Albumin 2.5 G/DL (3.4-5.0); Alkaline Phosphatase 45 U/L (45-117); Aspartate Amino Transferase 32 U/L (0-37); Bilirubin,Total < 0.39 MG/DL (0.2-1.0); Blood Urea Nitrogen 8 MG/DL (7-18); Calcium 8.4 MG/DL (8.5-10.1); Carbon Dioxide 31 MMOL/L (21-32); Estimated Glom Filtration Rate 173 ML/MIN; Glucose 95 MG/DL (74-106); Osmolality,Calculated 287.6 MOS/KG (273-304); Sodium 146 MMOL/L (136-145); Total Protein 5.8 G/DL (6.4-8.2)
[2021-05-09 04:56] LABS: ABG HCO3 28.9 MMOL/L (20-26); ABG Oxygen Saturation 98.4 % (95-100); ABG PCO2 45.4 MM HG (35-48); ABG TCO2 26.6 MMOL/L (23-27); Allen Test Positive; Pt O2 Delivery Device Ventilator
[2021-05-09] MEDS: cefTRIAXone 1,000 MG in SODIUM CHLORIDE 0.9% 100 ML IV SCH (08:03)
[2021-05-09] MEDS: PANTOPRAZOLE 40 MG VIAL IV SCH (08:04)
[2021-05-09] MEDS: DOCUSATE SODIUM 100 MG/10 ML UDCUP PO SCH ×2 (08:04→20:02)
[2021-05-09] MEDS: GABAPENTIN 300 MG CAPSULE PO SCH ×3 (08:04→20:02)
[2021-05-09] MEDS: ESCITALOPRAM 10 MG TABLET PO SCH (08:04)
[2021-05-09] MEDS: cloNIDine 0.1 MG TABLET PER TUBE PRN (09:12)
[2021-05-09] MEDS: METHOCARBAMOL 750 MG TABLET PO PRN (09:49)
[2021-05-09] MEDS: MORPHINE 4 MG/1 ML VIAL IV PRN ×3 (09:49→17:38)
[2021-05-09] MEDS: KETOROLAC 30 MG/1 ML VIAL IV PRN ×2 (10:52→20:02)
[2021-05-09] MEDS: hydrALAZINE 20 MG/1 ML VIAL IV PRN ×2 (10:54→23:48)
[2021-05-09] MEDS: ACETAMINOPHEN 325 MG TABLET PO PRN (10:55)
[2021-05-09] MEDS: ENOXAPARIN 40 MG/0.4 ML SYRINGE SUBCUT SCH (12:24)
[2021-05-09] MEDS: VANCOMYCIN INJ 1,500 MG in SODIUM CHLORIDE 0.9% 500 ML IV SCH ×2 (12:40→22:55)
[2021-05-09] MEDS: IBUPROFEN 400 MG TABLET PO PRN (12:42)
[2021-05-09] MEDS: rOPINIRole 0.25 MG TABLET PO PRN (17:37)
[2021-05-09] MEDS: MIRTAZAPINE 15 MG TABLET PO SCH (20:02)
[2021-05-10] MEDS: MIDAZOLAM 100 MG in SODIUM CHLORIDE 0.9% 80 ML IV PRN ×3 (00:30→21:16)
[2021-05-10 04:14] LABS: Basophils % 0.4 % (0.0-0.8); Eosinophils # 0.2 10*3/uL (0.0-0.87); Eosinophils % 3.2 % (0.00-10.9); Hematocrit 32.1 VOL% (42.0-52.0); Hemoglobin 10.2 GM/DL (14.0-18.0); Immature Granulocytes % 0.4 %; Immature Granulocytes Absolute 0.02 #; Lymphocytes # 1.3 10*3/uL (1.4-4.0); Lymphocytes % 25.5 % (21.2-54.2); Mean Corpuscular HGB Conc 31.8 GM/DL (32-36); Mean Corpuscular Volume 89.2 FL (87-102); Mean Platelet Volume 9.7 FL (9.6-12.0); Monocytes % 4.7 % (1.7-12.7); Neutrophils % 65.8 % (38.7-73.9); Platelet Count 233 T/CUMM (130-400); Red Cell Distribution Width 14.2 % (9.3-17.3); White Blood Count 4.9 T/CUMM (4-12)
[2021-05-10] MEDS: cloNIDine 0.1 MG TABLET PER TUBE SCH ×4 (04:15→21:15)
[2021-05-10 04:35] LABS: ABG Base Excess 4.4 MMOL/L (-2.5-2.5); ABG Oxygen Saturation 97.6 % (95-100); ABG PCO2 43.3 MM HG (35-48); ABG PH 7.444 (7.35-7.45); ABG PO2 106.2 MM HG (80-95); ABG TCO2 30.3 MMOL/L (23-27); Allen Test Positive; Pt O2 Delivery Device Ventilator
[2021-05-10 04:38] LABS: Eosinophils 5 % (0-10); Hypochromasia Slight; Lymphocytes 27 % (20-55); Microcytosis Slight; Platelet Estimate Adequate; Segmented Neutrophils 66 % (50-85); Total Cells Counted 100
[2021-05-10 04:39] LABS: Calcium 8.4 MG/DL (8.5-10.1); Osmolality,Calculated 290.6 MOS/KG (273-304); Potassium 3.7 MMOL/L (3.5-5.1)
[2021-05-10] MEDS ORDERED: LORazepam 2 MG/1 ML VIAL IV PRN (08:04)
[2021-05-10] MEDS ORDERED: FUROSEMIDE 20 MG/2 ML VIAL IV ONE (08:30)
[2021-05-10] MEDS: GABAPENTIN 300 MG CAPSULE PO SCH ×3 (08:42→21:12)
[2021-05-10] MEDS: ESCITALOPRAM 10 MG TABLET PO SCH (08:44)
[2021-05-10] MEDS: PANTOPRAZOLE 40 MG VIAL IV SCH (08:44)
[2021-05-10] MEDS: cefTRIAXone 1,000 MG in SODIUM CHLORIDE 0.9% 100 ML IV SCH (08:44)
[2021-05-10] MEDS: amLODIPine 5 MG TABLET PO SCH (08:44)
[2021-05-10] MEDS: DOCUSATE SODIUM 100 MG/10 ML UDCUP PO SCH (11:04)
[2021-05-10] MEDS: VANCOMYCIN INJ 1,500 MG in SODIUM CHLORIDE 0.9% 500 ML IV SCH ×2 (11:51→22:10)
[2021-05-10] MEDS: ENOXAPARIN 40 MG/0.4 ML SYRINGE SUBCUT SCH (11:51)
[2021-05-10] MEDS: LORazepam 2 MG/1 ML VIAL IV PRN (19:11)
[2021-05-10] MEDS: MIRTAZAPINE 15 MG TABLET PO SCH (21:12)
[2021-05-10 21:43] LABS: Calcium 8.7 MG/DL (8.5-10.1); Osmolality,Calculated 290.7 MOS/KG (273-304); Potassium 3.8 MMOL/L (3.5-5.1)
[2021-05-10] MEDS: POTASSIUM CHLORIDE 20 MEQ/15 ML UDCUP PER TUBE PRN (22:08)
[2021-05-11 03:39] LABS: ABG Base Excess 2.7 MMOL/L (-2.5-2.5); ABG HCO3 26.8 MMOL/L (20-26); ABG Oxygen Saturation 98.5 % (95-100); Allen Test Positive; Pt O2 Delivery Device Ventilator
[2021-05-11] MEDS: cloNIDine 0.1 MG TABLET PER TUBE SCH ×4 (03:48→21:04)
[2021-05-11 05:15] LABS: Basophils % 0.2 % (0.0-0.8); Eosinophils # 0.1 10*3/uL (0.0-0.87); Eosinophils % 0.9 % (0.00-10.9); Hematocrit 36.7 VOL% (42.0-52.0); Hemoglobin 11.7 GM/DL (14.0-18.0); Immature Granulocytes % 0.5 %; Immature Granulocytes Absolute 0.04 #; Lymphocytes # 1.6 10*3/uL (1.4-4.0); Lymphocytes % 18.5 % (21.2-54.2); Mean Corpuscular HGB Conc 31.9 GM/DL (32-36); Mean Corpuscular Volume 90.6 FL (87-102); Mean Platelet Volume 11.2 FL (9.6-12.0); Neutrophils % 74.9 % (38.7-73.9); Platelet Count 187 T/CUMM (130-400); Red Blood Count 4.05 MC/CUMM (3.8-5.5); Red Cell Distribution Width 14.6 % (9.3-17.3); White Blood Count 8.4 T/CUMM (4-12)
[2021-05-11 05:34] LABS: Hypochromasia Slight; Microcytosis Slight; Platelet Estimate Adequate
[2021-05-11 05:42] LABS: Calcium 8.9 MG/DL (8.5-10.1); Potassium 3.8 MMOL/L (3.5-5.1)
[2021-05-11] MEDS: POTASSIUM CHLORIDE 20 MEQ/15 ML UDCUP PER TUBE PRN (06:01)
[2021-05-11] MEDS: LORazepam 2 MG/1 ML VIAL IV PRN (08:34)
[2021-05-11] MEDS: ESCITALOPRAM 10 MG TABLET PO SCH (08:34)
[2021-05-11] MEDS: GABAPENTIN 300 MG CAPSULE PO SCH ×3 (08:34→20:57)
[2021-05-11] MEDS: amLODIPine 5 MG TABLET PO SCH (08:34)
[2021-05-11] MEDS: PANTOPRAZOLE 40 MG VIAL IV SCH (08:35)
[2021-05-11] MEDS: cefTRIAXone 1,000 MG in SODIUM CHLORIDE 0.9% 100 ML IV SCH (08:35)
[2021-05-11] MEDS ORDERED: FUROSEMIDE 20 MG/2 ML VIAL IV ONE (09:30)
[2021-05-11] MEDS: MIDAZOLAM 100 MG in SODIUM CHLORIDE 0.9% 80 ML IV PRN (09:30)
[2021-05-11] MEDS: rOPINIRole 0.25 MG TABLET PO PRN (09:59)
[2021-05-11] MEDS: DEXMEDETOMIDINE 200 MCG in SODIUM CHLORIDE 0.9% 48 ML IV PRN ×3 (10:38→19:11)
[2021-05-11] MEDS: VANCOMYCIN INJ 1,500 MG in SODIUM CHLORIDE 0.9% 500 ML IV SCH ×2 (11:46→22:41)
[2021-05-11] MEDS: ENOXAPARIN 40 MG/0.4 ML SYRINGE SUBCUT SCH (11:48)
[2021-05-11] MEDS: fentaNYL 50 MCG/HR PATCH TRANSDERM SCH (12:03)
[2021-05-11] MEDS: MIRTAZAPINE 15 MG TABLET PO SCH (20:58)
[2021-05-11] MEDS: DEXMEDETOMIDINE 400 MCG in SODIUM CHLORIDE 0.9% 96 ML IV PRN (22:40)
[2021-05-12 02:48] LABS: ABG Base Excess 1.5 MMOL/L (-2.5-2.5); ABG HCO3 25.8 MMOL/L (20-26); ABG Oxygen Saturation 97.9 % (95-100); ABG PCO2 43.6 MM HG (35-48); ABG PH 7.395 (7.35-7.45); ABG TCO2 23.9 MMOL/L (23-27); Allen Test Positive; Pt O2 Delivery Device Ventilator
[2021-05-12] MEDS: cloNIDine 0.1 MG TABLET PER TUBE SCH ×4 (03:38→22:09)
[2021-05-12 04:37] LABS: Basophils % 0.4 % (0.0-0.8); Eosinophils # 0.2 10*3/uL (0.0-0.87); Eosinophils % 2.5 % (0.00-10.9); Hematocrit 34.4 VOL% (42.0-52.0); Hemoglobin 11.3 GM/DL (14.0-18.0); Immature Granulocytes % 0.3 %; Immature Granulocytes Absolute 0.02 #; Lymphocytes # 1.6 10*3/uL (1.4-4.0); Lymphocytes % 20.6 % (21.2-54.2); Mean Corpuscular HGB Conc 32.8 GM/DL (32-36); Neutrophils % 70.2 % (38.7-73.9); Platelet Count 241 T/CUMM (130-400); Red Blood Count 3.91 MC/CUMM (3.8-5.5); Red Cell Distribution Width 14.2 % (9.3-17.3); White Blood Count 7.7 T/CUMM (4-12)
[2021-05-12 05:06] LABS: Albumin 2.8 G/DL (3.4-5.0); Bilirubin,Total 0.5 MG/DL (0.2-1.0); Calcium 8.8 MG/DL (8.5-10.1); Potassium 3.9 MMOL/L (3.5-5.1); Total Protein 6.8 G/DL (6.4-8.2)
[2021-05-12] MEDS: DEXMEDETOMIDINE 400 MCG in SODIUM CHLORIDE 0.9% 96 ML IV PRN ×3 (07:00→19:21)
[2021-05-12] MEDS: PANTOPRAZOLE 40 MG VIAL IV SCH (08:48)
[2021-05-12] MEDS: ESCITALOPRAM 10 MG TABLET PO SCH (09:27)
[2021-05-12] MEDS: GABAPENTIN 300 MG CAPSULE PO SCH ×3 (09:27→22:09)
[2021-05-12] MEDS: amLODIPine 5 MG TABLET PO SCH (09:27)
[2021-05-12] MEDS: cefTRIAXone 1,000 MG in SODIUM CHLORIDE 0.9% 100 ML IV SCH (09:28)
[2021-05-12] MEDS: ENOXAPARIN 40 MG/0.4 ML SYRINGE SUBCUT SCH (10:52)
[2021-05-12] MEDS: VANCOMYCIN INJ 1,500 MG in SODIUM CHLORIDE 0.9% 500 ML IV SCH ×2 (11:27→23:14)
[2021-05-12] MEDS: MIRTAZAPINE 15 MG TABLET PO SCH (22:08)
[2021-05-13] MEDS: DEXMEDETOMIDINE 400 MCG in SODIUM CHLORIDE 0.9% 96 ML IV PRN ×6 (01:29→23:13)
[2021-05-13 04:51] LABS: ABG Base Excess 1.9 MMOL/L (-2.5-2.5); ABG Oxygen Saturation 96.8 % (95-100); ABG PCO2 38.7 MM HG (35-48); ABG PH 7.445 (7.35-7.45); ABG PO2 90.9 MM HG (80-95); ABG TCO2 27.2 MMOL/L (23-27); Allen Test Positive; Pt O2 Delivery Device Ventilator
[2021-05-13] MEDS: cloNIDine 0.1 MG TABLET PER TUBE SCH ×4 (06:43→21:35)
[2021-05-13] MEDS: GABAPENTIN 300 MG CAPSULE PO SCH ×3 (09:27→21:35)
[2021-05-13] MEDS: ESCITALOPRAM 10 MG TABLET PO SCH (09:27)
[2021-05-13] MEDS: amLODIPine 5 MG TABLET PO SCH (09:27)
[2021-05-13] MEDS: PANTOPRAZOLE 40 MG VIAL IV SCH (09:35)
[2021-05-13] MEDS: VANCOMYCIN INJ 1,500 MG in SODIUM CHLORIDE 0.9% 500 ML IV SCH ×2 (11:45→23:15)
[2021-05-13] MEDS: ENOXAPARIN 40 MG/0.4 ML SYRINGE SUBCUT SCH (11:45)
[2021-05-13] MEDS: HALOPERIDOL 5 MG/ML AMP IV PRN ×3 (13:15→22:35)
[2021-05-13] MEDS: LORazepam 2 MG/1 ML VIAL IV PRN (13:35)
[2021-05-13] MEDS: MIRTAZAPINE 15 MG TABLET PO SCH (21:35)
[2021-05-14] MEDS: DEXMEDETOMIDINE 400 MCG in SODIUM CHLORIDE 0.9% 96 ML IV PRN (03:54)
[2021-05-14 04:24] LABS: ABG Base Excess 1.2 MMOL/L (-2.5-2.5); ABG HCO3 25.5 MMOL/L (20-26); ABG Oxygen Saturation 99.7 % (95-100); ABG PCO2 40.3 MM HG (35-48); ABG PH 7.413 (7.35-7.45); ABG TCO2 22.4 MMOL/L (23-27); Allen Test Positive; Pt O2 Delivery Device Ventilator
[2021-05-14] MEDS: cloNIDine 0.1 MG TABLET PER TUBE SCH ×4 (04:53→22:06)
[2021-05-14 04:57] LABS: Basophils % 0.4 % (0.0-0.8); Eosinophils # 0.2 10*3/uL (0.0-0.87); Eosinophils % 1.9 % (0.00-10.9); Hematocrit 35.3 VOL% (42.0-52.0); Hemoglobin 11.6 GM/DL (14.0-18.0); Immature Granulocytes % 0.5 %; Immature Granulocytes Absolute 0.04 #; Lymphocytes # 1.7 10*3/uL (1.4-4.0); Lymphocytes % 21.9 % (21.2-54.2); Mean Corpuscular HGB Conc 32.9 GM/DL (32-36); Mean Corpuscular Volume 86.7 FL (87-102); Mean Platelet Volume 10.2 FL (9.6-12.0); Monocytes % 7.5 % (1.7-12.7); Neutrophils % 67.8 % (38.7-73.9); Platelet Count 281 T/CUMM (130-400); Red Blood Count 4.07 MC/CUMM (3.8-5.5); Red Cell Distribution Width 13.8 % (9.3-17.3); White Blood Count 7.7 T/CUMM (4-12)
[2021-05-14 05:25] LABS: Albumin 2.9 G/DL (3.4-5.0); Bilirubin,Total 1.5 MG/DL (0.2-1.0); Calcium 9.2 MG/DL (8.5-10.1); Potassium 3.4 MMOL/L (3.5-5.1); Total Protein 6.9 G/DL (6.4-8.2)
[2021-05-14] MEDS: POTASSIUM CHLORIDE 20 MEQ/15 ML UDCUP PER TUBE PRN ×5 (06:29→23:09)
[2021-05-14] MEDS: ESCITALOPRAM 10 MG TABLET PO SCH (09:08)
[2021-05-14] MEDS: amLODIPine 5 MG TABLET PO SCH (09:08)
[2021-05-14] MEDS: GABAPENTIN 300 MG CAPSULE PO SCH ×3 (09:08→20:20)
[2021-05-14] MEDS: PANTOPRAZOLE 40 MG VIAL IV SCH (09:17)
[2021-05-14] MEDS: ENOXAPARIN 40 MG/0.4 ML SYRINGE SUBCUT SCH (11:23)
[2021-05-14] MEDS: rOPINIRole 0.25 MG TABLET PO PRN ×2 (12:30→20:19)
[2021-05-14] MEDS: fentaNYL 50 MCG/HR PATCH TRANSDERM SCH (12:32)
[2021-05-14] MEDS ORDERED: LORazepam 2 MG/1 ML VIAL IV PRN (14:01)
[2021-05-14] MEDS: DEXTROSE 5% LACTATED RINGERS 1,000 ML IV SCH (14:15)
[2021-05-14] MEDS ORDERED: chlordiazePOXIDE 10 MG CAPSULE PO SCH (17:00)
[2021-05-14] MEDS: chlordiazePOXIDE 10 MG CAPSULE PO SCH ×2 (18:05→20:24)
[2021-05-14] MEDS: MIRTAZAPINE 15 MG TABLET PO SCH (20:20)
[2021-05-15] MEDS: DEXTROSE 5% LACTATED RINGERS 1,000 ML IV SCH ×4 (00:30→21:58)
[2021-05-15] MEDS: ACETAMINOPHEN 325 MG TABLET PO PRN (03:37)
[2021-05-15] MEDS: cloNIDine 0.1 MG TABLET PER TUBE SCH ×3 (03:48→20:34)
[2021-05-15 05:00] LABS: Basophils % 0.3 % (0.0-0.8); Eosinophils # 0.1 10*3/uL (0.0-0.87); Eosinophils % 0.9 % (0.00-10.9); Hematocrit 38.9 VOL% (42.0-52.0); Hemoglobin 13.1 GM/DL (14.0-18.0); Immature Granulocytes % 0.4 %; Immature Granulocytes Absolute 0.04 #; Lymphocytes # 1.3 10*3/uL (1.4-4.0); Lymphocytes % 14.2 % (21.2-54.2); Mean Corpuscular HGB Conc 33.7 GM/DL (32-36); Mean Corpuscular Volume 86.4 FL (87-102); Mean Platelet Volume 10.1 FL (9.6-12.0); Monocytes % 8.3 % (1.7-12.7); Neutrophils % 75.9 % (38.7-73.9); Platelet Count 357 T/CUMM (130-400); Red Cell Distribution Width 14.1 % (9.3-17.3); White Blood Count 9.1 T/CUMM (4-12)
[2021-05-15 05:33] LABS: Calcium 9.7 MG/DL (8.5-10.1); Osmolality,Calculated 285.8 MOS/KG (273-304); Potassium 3.6 MMOL/L (3.5-5.1)
[2021-05-15] MEDS: chlordiazePOXIDE 10 MG CAPSULE PO SCH (09:41)
[2021-05-15] MEDS: GABAPENTIN 300 MG CAPSULE PO SCH (09:42)
[2021-05-15] MEDS: amLODIPine 5 MG TABLET PO SCH (09:52)
[2021-05-15] MEDS: PANTOPRAZOLE 40 MG VIAL IV SCH (09:52)
[2021-05-15] MEDS: ESCITALOPRAM 10 MG TABLET PO SCH (09:52)
[2021-05-15] MEDS: ENOXAPARIN 40 MG/0.4 ML SYRINGE SUBCUT SCH (10:24)
[2021-05-15] MEDS: GABAPENTIN 100 MG CAPSULE PO SCH ×2 (15:57→20:42)
[2021-05-15] MEDS: POTASSIUM CHLORIDE 20 MEQ/15 ML UDCUP PER TUBE PRN ×2 (16:04→18:16)
[2021-05-15] MEDS: MIRTAZAPINE 15 MG TABLET PO SCH (20:42)
[2021-05-16 02:54] LABS: ABG Base Excess 3.4 MMOL/L (-2.5-2.5); ABG HCO3 27.4 MMOL/L (20-26); ABG Oxygen Saturation 95.9 % (95-100); ABG PCO2 37.2 MM HG (35-48); ABG PH 7.469 (7.35-7.45); ABG PO2 76.8 MM HG (80-95); ABG TCO2 23.2 MMOL/L (23-27)
[2021-05-16 04:43] LABS: Basophils # 0.1 10*3/uL (0.0-0.2); Basophils % 0.5 % (0.0-0.8); Eosinophils # 0.1 10*3/uL (0.0-0.87); Eosinophils % 0.9 % (0.00-10.9); Hematocrit 42.2 VOL% (42.0-52.0); Hemoglobin 13.6 GM/DL (14.0-18.0); Immature Granulocytes % 0.4 %; Immature Granulocytes Absolute 0.04 #; Lymphocytes # 1.4 10*3/uL (1.4-4.0); Mean Corpuscular HGB Conc 32.2 GM/DL (32-36); Mean Corpuscular Volume 87.9 FL (87-102); Mean Platelet Volume 10.3 FL (9.6-12.0); Monocytes % 8.4 % (1.7-12.7); Neutrophils % 76.8 % (38.7-73.9); Platelet Count 378 T/CUMM (130-400); Red Cell Distribution Width 14.6 % (9.3-17.3); White Blood Count 10.7 T/CUMM (4-12)
[2021-05-16 05:14] LABS: Osmolality,Calculated 293.6 MOS/KG (273-304); Potassium 3.7 MMOL/L (3.5-5.1)
[2021-05-16] MEDS: POTASSIUM CHLORIDE 20 MEQ/15 ML UDCUP PER TUBE PRN (05:39)
[2021-05-16] MEDS: DEXTROSE 5% LACTATED RINGERS 1,000 ML IV SCH (07:51)
[2021-05-16] MEDS: GABAPENTIN 100 MG CAPSULE PO SCH ×3 (08:49→21:44)
[2021-05-16] MEDS: cloNIDine 0.1 MG TABLET PER TUBE SCH ×2 (08:54→21:43)
[2021-05-16] MEDS: amLODIPine 5 MG TABLET PO SCH (08:54)
[2021-05-16] MEDS: ESCITALOPRAM 10 MG TABLET PO SCH (08:54)
[2021-05-16] MEDS: PANTOPRAZOLE 40 MG VIAL IV SCH (08:54)
[2021-05-16] MEDS: ENOXAPARIN 40 MG/0.4 ML SYRINGE SUBCUT SCH (11:43)
[2021-05-16] MEDS: MIRTAZAPINE 15 MG TABLET PO SCH (21:44)
[2021-05-17 05:46] LABS: Basophils # 0.1 10*3/uL (0.0-0.2); Basophils % 0.5 % (0.0-0.8); Eosinophils # 0.1 10*3/uL (0.0-0.87); Hemoglobin 14.3 GM/DL (14.0-18.0); Immature Granulocytes % 0.3 %; Immature Granulocytes Absolute 0.04 #; Lymphocytes # 1.7 10*3/uL (1.4-4.0); Lymphocytes % 13.7 % (21.2-54.2); Mean Corpuscular HGB Conc 32.5 GM/DL (32-36); Mean Corpuscular Volume 87.5 FL (87-102); Mean Platelet Volume 10.3 FL (9.6-12.0); Monocytes % 8.4 % (1.7-12.7); Neutrophils % 76.1 % (38.7-73.9); Platelet Count 402 T/CUMM (130-400); Red Blood Count 5.03 MC/CUMM (3.8-5.5); Red Cell Distribution Width 14.4 % (9.3-17.3); White Blood Count 12.7 T/CUMM (4-12)
[2021-05-17 06:15] LABS: Osmolality,Calculated 290.8 MOS/KG (273-304); Potassium 3.7 MMOL/L (3.5-5.1)
[2021-05-17] MEDS: GABAPENTIN 100 MG CAPSULE PO SCH (08:42)
[2021-05-17] MEDS: cloNIDine 0.1 MG TABLET PER TUBE SCH ×2 (09:41→22:30)
[2021-05-17] MEDS: amLODIPine 5 MG TABLET PO SCH (09:41)
[2021-05-17] MEDS: ESCITALOPRAM 10 MG TABLET PO SCH (09:41)
[2021-05-17] MEDS: PANTOPRAZOLE 40 MG VIAL IV SCH (09:42)
[2021-05-17] MEDS: ZINC OXIDE PASTE 113 GM TUBE TOP PRN (09:44)
[2021-05-17] MEDS: ENOXAPARIN 40 MG/0.4 ML SYRINGE SUBCUT SCH (10:44)
[2021-05-17] MEDS: LACTOBACILLUS ACIDOPHILUS/BULGARICUS 1 PACKET PO SCH ×3 (14:57→22:30)
[2021-05-17] MEDS: NYSTATIN POWDER 15 GM BOTTLE TOP SCH ×2 (14:58→22:30)
[2021-05-17] MEDS: MIRTAZAPINE 15 MG TABLET PO SCH (22:32)
[2021-05-18] MEDS ORDERED: METOPROLOL TARTRATE 5 MG/5 ML VIAL IV ONE (02:39)
[2021-05-18 06:40] LABS: Basophils # 0.1 10*3/uL (0.0-0.2); Basophils % 0.4 % (0.0-0.8); Eosinophils # 0.2 10*3/uL (0.0-0.87); Eosinophils % 1.7 % (0.00-10.9); Hematocrit 43.6 VOL% (42.0-52.0); Hemoglobin 14.9 GM/DL (14.0-18.0); Immature Granulocytes % 0.3 %; Immature Granulocytes Absolute 0.04 #; Lymphocytes # 1.6 10*3/uL (1.4-4.0); Lymphocytes % 13.9 % (21.2-54.2); Mean Corpuscular HGB Conc 34.2 GM/DL (32-36); Mean Corpuscular Volume 85.3 FL (87-102); Mean Platelet Volume 10.7 FL (9.6-12.0); Monocytes % 7.9 % (1.7-12.7); Neutrophils % 75.8 % (38.7-73.9); Platelet Count 377 T/CUMM (130-400); Red Blood Count 5.11 MC/CUMM (3.8-5.5); Red Cell Distribution Width 14.1 % (9.3-17.3); White Blood Count 11.6 T/CUMM (4-12)
[2021-05-18 07:10] LABS: Calcium 9.7 MG/DL (8.5-10.1); Osmolality,Calculated 287.1 MOS/KG (273-304); Potassium 3.5 MMOL/L (3.5-5.1)
[2021-05-18] MEDS: cloNIDine 0.1 MG TABLET PER TUBE SCH ×3 (08:38→20:22)
[2021-05-18] MEDS: NYSTATIN POWDER 15 GM BOTTLE TOP SCH ×3 (08:38→20:23)
[2021-05-18] MEDS: LACTOBACILLUS ACIDOPHILUS/BULGARICUS 1 PACKET PO SCH ×4 (08:38→20:23)
[2021-05-18] MEDS: amLODIPine 5 MG TABLET PO SCH (08:38)
[2021-05-18] MEDS: POTASSIUM CHLORIDE 20 MEQ/15 ML UDCUP PER TUBE PRN (08:38)
[2021-05-18] MEDS: ESCITALOPRAM 10 MG TABLET PO SCH (08:38)
[2021-05-18] MEDS: PANTOPRAZOLE 40 MG VIAL IV SCH (09:04)
[2021-05-18] MEDS: ENOXAPARIN 40 MG/0.4 ML SYRINGE SUBCUT SCH (11:38)
[2021-05-18] MEDS: PHENOL 1.4% THROAT SPRAY 177 ML BOTTLE PO PRN (11:55)
[2021-05-18] MEDS: POTASSIUM CHLORIDE 20 MEQ TABLET PO PRN (14:20)
[2021-05-18] MEDS: MIRTAZAPINE 15 MG TABLET PO SCH (20:23)
[2021-05-18] MEDS: ACETAMINOPHEN 325 MG TABLET PO PRN (23:03)
[2021-05-19] MEDS: cloNIDine 0.1 MG TABLET PER TUBE SCH ×4 (01:40→20:51)
[2021-05-19] MEDS: IBUPROFEN 400 MG TABLET PO PRN ×4 (02:35→16:41)
[2021-05-19] MEDS: ZINC OXIDE PASTE 113 GM TUBE TOP PRN ×2 (08:44→11:15)
[2021-05-19] MEDS: NYSTATIN POWDER 15 GM BOTTLE TOP SCH (08:44)
[2021-05-19] MEDS: PANTOPRAZOLE 40 MG VIAL IV SCH (09:07)
[2021-05-19] MEDS: ESCITALOPRAM 10 MG TABLET PO SCH (09:07)
[2021-05-19] MEDS: amLODIPine 5 MG TABLET PO SCH (09:07)
[2021-05-19] MEDS: LACTOBACILLUS ACIDOPHILUS/BULGARICUS 1 PACKET PO SCH ×4 (09:25→20:51)
[2021-05-19] MEDS: PHENOL 1.4% THROAT SPRAY 177 ML BOTTLE PO PRN (09:32)
[2021-05-19] MEDS: ENOXAPARIN 40 MG/0.4 ML SYRINGE SUBCUT SCH (11:14)
[2021-05-19] MEDS: ACETAMINOPHEN 325 MG TABLET PO PRN ×2 (11:19→20:51)
[2021-05-19] MEDS: DESITIN 4OZ/NYSTATIN 15 GRAM MIXTURE PASTE TOP SCH ×2 (14:06→21:38)
[2021-05-19] MEDS: MIRTAZAPINE 15 MG TABLET PO SCH (20:51)
[2021-05-20 05:37] LABS: Basophils # 0.1 10*3/uL (0.0-0.2); Basophils % 0.7 % (0.0-0.8); Eosinophils # 0.3 10*3/uL (0.0-0.87); Eosinophils % 3.4 % (0.00-10.9); Hematocrit 38.9 VOL% (42.0-52.0); Hemoglobin 13.8 GM/DL (14.0-18.0); Immature Granulocytes % 0.4 %; Immature Granulocytes Absolute 0.03 #; Lymphocytes # 2.1 10*3/uL (1.4-4.0); Lymphocytes % 27.6 % (21.2-54.2); Mean Corpuscular HGB Conc 35.5 GM/DL (32-36); Mean Corpuscular Volume 82.9 FL (87-102); Mean Platelet Volume 11.1 FL (9.6-12.0); Monocytes % 7.5 % (1.7-12.7); Neutrophils % 60.4 % (38.7-73.9); Platelet Count 344 T/CUMM (130-400); Red Blood Count 4.69 MC/CUMM (3.8-5.5); Red Cell Distribution Width 13.6 % (9.3-17.3); White Blood Count 7.6 T/CUMM (4-12)
[2021-05-20 05:54] LABS: Calcium 9.4 MG/DL (8.5-10.1); Osmolality,Calculated 275.7 MOS/KG (273-304); Potassium 3.5 MMOL/L (3.5-5.1)
[2021-05-20] MEDS: IBUPROFEN 400 MG TABLET PO PRN ×2 (07:23→17:02)
[2021-05-20] MEDS: ESCITALOPRAM 10 MG TABLET PO SCH (09:41)
[2021-05-20] MEDS: amLODIPine 5 MG TABLET PO SCH (09:41)
[2021-05-20] MEDS: LACTOBACILLUS ACIDOPHILUS/BULGARICUS 1 PACKET PO SCH ×4 (09:41→21:12)
[2021-05-20] MEDS: PANTOPRAZOLE 40 MG VIAL IV SCH (09:41)
[2021-05-20] MEDS: DICYCLOMINE 10 MG CAPSULE PO PRN ×2 (09:41→17:02)
[2021-05-20] MEDS: cloNIDine 0.1 MG TABLET PER TUBE SCH ×2 (09:41→21:11)
[2021-05-20] MEDS: DESITIN 4OZ/NYSTATIN 15 GRAM MIXTURE PASTE TOP SCH ×2 (10:35→21:13)
[2021-05-20] MEDS: ENOXAPARIN 40 MG/0.4 ML SYRINGE SUBCUT SCH (12:10)
[2021-05-20] MEDS: MIRTAZAPINE 15 MG TABLET PO SCH (21:11)
[2021-05-21 05:29] LABS: Basophils # 0.1 10*3/uL (0.0-0.2); Basophils % 0.7 % (0.0-0.8); Eosinophils # 0.1 10*3/uL (0.0-0.87); Eosinophils % 1.9 % (0.00-10.9); Hematocrit 38.2 VOL% (42.0-52.0); Hemoglobin 13.2 GM/DL (14.0-18.0); Immature Granulocytes % 0.3 %; Immature Granulocytes Absolute 0.02 #; Lymphocytes # 2.1 10*3/uL (1.4-4.0); Lymphocytes % 31.3 % (21.2-54.2); Mean Corpuscular HGB Conc 34.6 GM/DL (32-36); Monocytes % 8.2 % (1.7-12.7); Neutrophils % 57.6 % (38.7-73.9); Platelet Count 314 T/CUMM (130-400); Red Blood Count 4.55 MC/CUMM (3.8-5.5); Red Cell Distribution Width 13.9 % (9.3-17.3); White Blood Count 6.8 T/CUMM (4-12)
[2021-05-21 05:50] LABS: Osmolality,Calculated 281.3 MOS/KG (273-304); Potassium 3.7 MMOL/L (3.5-5.1)
[2021-05-21] MEDS: IBUPROFEN 400 MG TABLET PO PRN (08:11)
[2021-05-21] MEDS: cloNIDine 0.1 MG TABLET PER TUBE SCH (08:12)
[2021-05-21] MEDS: POTASSIUM CHLORIDE 20 MEQ TABLET PO PRN (08:12)
[2021-05-21] MEDS: LACTOBACILLUS ACIDOPHILUS/BULGARICUS 1 PACKET PO SCH ×2 (08:12→12:22)
[2021-05-21] MEDS: amLODIPine 5 MG TABLET PO SCH (08:12)
[2021-05-21] MEDS: ESCITALOPRAM 10 MG TABLET PO SCH (08:12)
[2021-05-21] MEDS: DESITIN 4OZ/NYSTATIN 15 GRAM MIXTURE PASTE TOP SCH (10:12)
[2021-05-21] MEDS: PANTOPRAZOLE 40 MG VIAL IV SCH (10:19)
[2021-05-21] MEDS: ENOXAPARIN 40 MG/0.4 ML SYRINGE SUBCUT SCH (10:20)
[2021-05-21] MEDS ORDERED: levETIRAcetam 500 MG TABLET PO SCH (11:00)
[2021-05-21 12:07] VITALS: BP 128/70
[2021-05-22] MEDS ORDERED: amLODIPine 5 MG TABLET PO SCH (09:00)
== END 2021-05-21 14:00 | disposition home health service (06) | DRG 896 ==
LOC: EDUNIT# → EDBD → N.ED 18:36 → N.EDINP 18:36 → SUATTDRO 20:34 → N.3E 21:09 → N.ICU 05-06 06:29 → SUATTDRO 05-06 09:40 → N.3E 05-19 16:23
PROVIDERS: ADMIT Surgery; ATTEND Internal Medicine